=== PATIENT | male | born 1945 | race Caucasian/White ===

== ENCOUNTER → 2017-09-30 11:01 | Outpatient (CLI) | payer MEDICARE, SELFPAY ==
--- NOTE | 2017-09-30 | DI.US.S_ITS ---
PROCEDURE: US ABD AORTA ANEURYSM SCREEN INDICATIONS: SCREENING FOR ABDOMINAL AORTIC ANEURYSM TECHNIQUE: Real time scanning was performed of the aorta and iliac arteries, with image documentation. COMPARISON: None. FINDINGS: Aorta: Proximal aortic diameter measures 2.2 cm. Mid-aorta measures 1.7 cm. Distal aortic diameter is 1.6 cm. Iliac arteries: Right common iliac artery measures 1.1 cm. Left common iliac artery measures 1.3 cm. IMPRESSION: No abdominal aortic or proximal common iliac artery aneurysm. Dictated by: Brenton LANDRUM Interpreted: Chad Tijerina MD on 10/01/2017 at 8:41 Approved by: Josse Juarez M.D. on 10/04/2017 at 10:03
== END ==
PROVIDERS: Family Provider Family Medicine; PCP Family Medicine; Visit Provider Family Medicine
DX: Z13.6 Encounter for screening for cardiovascular disorders (principal)
CPT/HCPCS: 76706; 76770

== ENCOUNTER 2019-03-08 18:10 | Observation (INO) | payer MEDICARE, SELFPAY ==
[2019-03-08 18:17] VITALS: BP 183/91; PULSE 61; RESP 18; TEMP 36.7; O2SAT 96
--- NOTE | 2019-03-08 18:17 | DI.RAD.S_ITS ---
PROCEDURE: XR CHEST 1V INDICATIONS: chest pain TECHNIQUE: One view of the chest was acquired. COMPARISON: [facility], , CHEST 1 VIEW, 03/10/2017, 9:27. FINDINGS: Surgical changes and devices: None. Lungs and pleura: Lungs are clear. No pleural effusions or pneumothorax. Mediastinum: Mediastinal contours appear stable. No central venous congestion. Heart size is normal. Bones and chest wall: No suspicious bony lesions. Overlying soft tissues appear unremarkable. IMPRESSION: Stable exam without acute cardiopulmonary disease. Dictated by: Stephanie Pimentel M.D. on 03/08/2019 at 19:26 Approved by: Stephanie Pimentel M.D. on 03/08/2019 at 19:27
[2019-03-08 18:44] LABS: Add Manual Diff / Slide Review NO; Basophils Absolute Auto 100 /uL (0-100); Basophils Percent Auto 0.6 % (0-2); Eosinophils Absolute Auto 200 /uL (0-450); Eosinophils Percent Auto 2.7 % (2-4); Hematocrit 42.4 % (41-53); Hemoglobin 14.4 g/dL (13.5-17.5); Lymphocytes Absolute Auto 1800 /uL (1100-4500); Lymphocytes Percent Auto 20.5 % (25-40); Mean Corpuscular Hemoglobin 30.9 PG (26-34); Mean Corpuscular Volume 90.8 fL (80-100); Monocytes Absolute Auto 700 /uL (0-900); Monocytes Percent Auto 7.6 % (3-14); Neutrophils Absolute Auto 6100 /uL (1500-7000); Neutrophils Percent Auto 68.6 % (50-75); Platelet Count 161 X10^3/uL (150-400); Red Blood Cell Count 4.67 X10^6/uL (4.5-5.9); Red Cell Distribution Width 14.1 % (11.6-14.8); White Blood Cell Count 8.9 X10^3/uL (4.5-11.0)
--- NOTE | 2019-03-08 18:47 | PC.NURSE ---
pt reports, chest tightness intermittent, occurs at rest and on exertion, denies vomiting, denies diaphoretic, denies coughing. sxs for 6 months, supposed to have cardiology work up, but never recieved a call on arrival, pain free at this time. skin warm dry pink, denies bilateral lower legs edema.
[2019-03-08 18:58] LABS: PTT Partial Thromboplastin Tim 28 SECONDS (26.4-36.2)
[2019-03-08 18:59] LABS: Alanine Aminotransferase 25 IU/L (<50); Albumin 4.1 g/dL (3.5-5.0); Albumin Globulin Ratio 1.5 (1.0-2.8); Alkaline Phosphatase 79 U/L (38-126); Aspartate Aminotransferase 32 IU/L (17-59); BUN Creatinine Ratio 27.5 (6-22); Bilirubin Total 0.7 mg/dL (0.2-1.3); Blood Urea Nitrogen 22 mg/dL (9-20); Carbon Dioxide 25 mmol/L (22-32); Chloride 108 mmol/L (98-107); Creatine Kinase 212 U/L (55-170); Estimated Glomerular Filt Rate > 60.0 mL/min (>60); Globulin 2.8 g/dL (1.7-4.1); Glucose 114 mg/dL (80-110); HEMOLYSIS < 15 (0-50); Lipase 56 U/L (23-300); Potassium 3.9 mmol/L (3.4-5.1); Sodium 142 mmol/L (137-145); Total Protein 6.9 g/dL (6.3-8.2)
[2019-03-08 19:00] VITALS: BP 142/83; PULSE 55; RESP 18; O2SAT 93
[2019-03-08 19:08] LABS: D Dimer 342 ng/mL (<230)
--- NOTE | 2019-03-08 19:10 | ED.CHESTPAIN ---
HPI - Chest Pain General Chief Complaint: Chest Pain Stated Complaint: CHEST PAIN Time Seen by Provider: 03/08/19 18:39 Source: patient Mode of arrival: Ambulatory Limitations: no limitations History of Present Illness HPI narrative: Patient is a 73-year-old male. Has known coronary artery disease. States that approximately 4 years ago he had ?a heart attack ?. According to his description of the event appears to be a non ST elevation NE. He states that he did have a cardiac catheterization ever no stents replaced. He states that the brick loader told him ?it was too small ?for them to place a stent in any arteries. He has taken medicines since then. Has not had any issues for the past 4 years. 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 He states that for the past 6 weeks he has noticed some chest pain on exertion. Not worse with palpation or movement. Over the past few days he has noticed that this has become more prevalent and then today has noticed that he had left-sided and right-sided chest pressure with exertion. The time my exam patient was symptom free. No shortness of breath. Did take a baby aspirin prior to arrival. Related Data Home Medications Medication Instructions Recorded Confirmed atenolol 25 mg PO QPM #0 06/28/16 03/08/19 fluticasone propionate [Flonase 1 spray INTRANASAL QDAY #0 06/28/16 03/08/19 Allergy Relief] aspirin 81 mg tablet,delayed 81 mg PO DAILY 09/28/17 03/08/19 release atorvastatin 20 mg tablet 20 mg PO DAILY 09/28/17 03/08/19 meloxicam [Mobic] 15 mg PO PRN PRN 03/08/19 03/08/19 Allergies Allergy/AdvReac Type Severity Reaction Status Date / Time No Known Drug Allergies Allergy Unverified 09/28/17 17:32 Review of Systems Constitutional Constitutional: Denies fever(s) and Denies headache(s) Eyes Eyes: Denies blurry vision ENT Ears, Nose, Mouth, and Throat: Denies headache(s) Cardiovascular Cardiovascular: Reports chest pain, Denies rapid heart rate, Denies pedal edema, Denies edema, Denies dyspnea and Denies dyspnea on exertion Respiratory Respiratory: Denies cough, Denies dyspnea and Denies dyspnea on exertion Gastrointestinal Gastrointestinal: Denies abdominal pain, Denies nausea and Denies vomiting Genitourinary Genitourinary: Denies dysuria Musculoskeletal Musculoskeletal: Denies myalgias and Denies arthralgias Integumentary/Breasts Skin/Breast: Denies lesions and Denies rash Neurologic Neurologic: Denies behavioral changes and Denies headache(s) Psychiatric Psychiatric: Denies behavioral changes Hematologic/Lymphatic Hematologic/Lymphatic: Denies easy bleeding and Denies easy bruising Patient History Medical History Coronary artery disease (Acute) Hypertension (Acute) Social History household members: spouse Smoking Status: Never smoker alcohol intake frequency: 0-2 drinks per day Substance Use Type: does not use Exam Initial Vital Signs Initial Vital Signs: Vital Signs Temperature 98.0 F 03/08/19 18:17 Pulse Rate 61 03/08/19 18:17 Respiratory Rate 18 03/08/19 18:17 Blood Pressure 183/91 H 03/08/19 18:17 Pulse Oximetry 96 03/08/19 18:17 Const General: cooperative, comfortable and well developed Orientation: alert, awake and oriented x3 HENMT Head: normal to inspection and normocephalic Resp Effort & Inspection: normal respiratory effort Auscultation: clear to auscultation bilaterally Cardio Rate: regular rate Rhythm: regular rhythm Pulses: radial pulses present GI Inspection: non-distended Palpation: soft and No firm Skin Lesions: no lesions Rashes: no rashes Neuro General: alert, awake and oriented x3 Cognition: normal cognition Speech: speech normal Motor: muscle tone normal throughout Sensory Exam: no sensory deficits noted Extrem General: normal to inspection and capillary refill normal Psych Appearance: grossly normal and well kempt Scores HEART Score Heart Score history: Highly Suspicious Heart Score EKG: Normal Heart Score Age: > or = 65 years old Heart Score risk factors: > 3 risk factors or hx of atherosclerotic disease Heart Score troponin: < or = to normal limit Heart Score Total: 6 Course Orders Ordered: ED Orders 03/08/19 18:17 XR chest 1V Stat 03/08/19 18:40 Complete Blood Count AUTO DIFF Stat Comprehensive Metabolic Panel Stat DD [D Dimer] Stat Lipase Stat Partial Thromboplastin Time Stat Prothrombin Time INR Stat Troponin & CK Cardiac Panel Stat 03/08/19 20:35 Troponin I Stat Acetaminophen (Tylenol) 650 mg PO Q6HR PRN PRN Reason: As Needed for Fever/Mild Pain Sodium Chloride (Normal Saline 0.9%) 1,000 mls @ 125 mls/hr IV CONT CHAN Last Admin: 03/08/19 21:17 Dose: 125 mls/hr Documented by: RADHA Nitroglycerin (Nitrostat) 0.4 mg SL [id number] PRN PRN Reason: Chest Pain Ondansetron HCl (Zofran) 4 mg IV Q4HR PRN PRN Reason: Nausea And Vomiting Discontinued Medications Aspirin (Aspirin Chew) 324 mg PO NOW ONE Stop: 03/08/19 19:48 Last Admin: 03/08/19 19:59 Dose: 324 mg Documented by: LETA Vital Signs Vital signs: Vital Signs - 8 hr 03/08/19 18:17 03/08/19 19:00 03/08/19 19:30 Temperature 98.0 F Pulse Rate 61 55 L 57 L Respiratory Rate 18 18 27 H Blood Pressure 183/91 H Blood Pressure [Left Arm] 142/83 H 140/79 Pulse Oximetry 96 93 95 03/08/19 20:00 Temperature Pulse Rate 56 L Respiratory Rate 24 Blood Pressure Blood Pressure [Left Arm] 160/87 H Pulse Oximetry 96 MDM - Chest Pain Lab Data Attestation: I reviewed the patient's lab results. Result diagrams: 03/08/19 18:40 03/08/19 18:40 Labs: Lab Results 03/08/19 03/08/19 03/08/19 Range/Units 18:40 18:40 18:40 WBC 8.9 (4.5-11.0) X10^3/uL RBC 4.67 (4.5-5.9) X10^6/uL Hgb 14.4 (13.5-17.5) g/dL Hct 42.4 (41-53) % MCV 90.8 (80-100) fL MCH 30.9 (26-34) PG MCHC 34.0 (30-36) % RDW 14.1 (11.6-14.8) % Plt Count 161 (150-400) X10^3/uL Neut % (Auto) 68.6 (50-75) % Lymph % (Auto) 20.5 L (25-40) % [place] % (Auto) 7.6 (3-14) % Eos % (Auto) 2.7 (2-4) % Baso % (Auto) 0.6 (0-2) % Neut # (Auto) 6100 (9510-4196) /uL Lymph # (Auto) 1800 (0898-3230) /uL [place] # (Auto) 700 (0-900) /uL Eos # (Auto) 200 (0-450) /uL Baso # (Auto) 100 (0-100) /uL PT 12.0 (10.1-12.7) SECONDS INR 1.0 (0.9-1.3) APTT 28 (26.4-36.2) SECONDS D-Dimer (<230) ng/mL Sodium 142 (137-145) mmol/L Potassium 3.9 (3.4-5.1) mmol/L Chloride 108 H (98-107) mmol/L Carbon Dioxide 25 (22-32) mmol/L BUN 22 H (9-20) mg/dL Creatinine 0.80 (0.66-1.25) mg/dL Estimated GFR > 60.0 (>60) mL/min BUN/Creatinine Ratio 27.5 H (6-22) Glucose 114 H (80-110) mg/dL Calcium 9.0 (8.4-10.2) mg/dL Total Bilirubin 0.7 (0.2-1.3) mg/dL AST 32 (17-59) IU/L ALT 25 (<50) IU/L Alkaline Phosphatase 79 (38-126) U/L Total Creatine Kinase 212 H (55-170) U/L CK-MB (CK-2) 2.96 H (<2.37) ng/mL CK-MB (CK-2) Rel Index 1.4 L (1.5-5.0) % Troponin I 0.014 (0.01-0.034) ng/mL Total Protein 6.9 (6.3-8.2) g/dL Albumin 4.1 (3.5-5.0) g/dL Globulin 2.8 (1.7-4.1) g/dL Albumin/Globulin Ratio 1.5 (1.0-2.8) Lipase 56 (23-300) U/L 03/08/19 Range/Units 18:40 WBC (4.5-11.0) X10^3/uL RBC (4.5-5.9) X10^6/uL Hgb (13.5-17.5) g/dL Hct (41-53) % MCV (80-100) fL MCH (26-34) PG MCHC (30-36) % RDW (11.6-14.8) % Plt Count (150-400) X10^3/uL Neut % (Auto) (50-75) % Lymph % (Auto) (25-40) % [place] % (Auto) (3-14) % Eos % (Auto) (2-4) % Baso % (Auto) (0-2) % Neut # (Auto) (5022-7874) /uL Lymph # (Auto) (1811-9807) /uL [place] # (Auto) (0-900) /uL Eos # (Auto) (0-450) /uL Baso # (Auto) (0-100) /uL PT (10.1-12.7) SECONDS INR (0.9-1.3) APTT (26.4-36.2) SECONDS D-Dimer 342 H (<230) ng/mL Sodium (137-145) mmol/L Potassium (3.4-5.1) mmol/L Chloride (98-107) mmol/L Carbon Dioxide (22-32) mmol/L BUN (9-20) mg/dL Creatinine (0.66-1.25) mg/dL Estimated GFR (>60) mL/min BUN/Creatinine Ratio (6-22) Glucose (80-110) mg/dL Calcium (8.4-10.2) mg/dL Total Bilirubin (0.2-1.3) mg/dL AST (17-59) IU/L ALT (<50) IU/L Alkaline Phosphatase (38-126) U/L Total Creatine Kinase (55-170) U/L CK-MB (CK-2) (<2.37) ng/mL CK-MB (CK-2) Rel Index (1.5-5.0) % Troponin I (0.01-0.034) ng/mL Total Protein (6.3-8.2) g/dL Albumin (3.5-5.0) g/dL Globulin (1.7-4.1) g/dL Albumin/Globulin Ratio (1.0-2.8) Lipase (23-300) U/L Imaging Data Chest x-ray: Radiologist's impression: [place] [id number] [place] [id number] XRay Report Signed Patient: Brett Fragoso TMR#: [id number] : 5Acct:[id number] Age/Sex: 73 / MDate of Service: 03/08/19 Loc: ED Accession Number: [id number] Procedure: XR chest 1V Ordering Provider: Maynor Shah D.O. PROCEDURE: XR CHEST 1V INDICATIONS: chest pain TECHNIQUE: One view of the chest was acquired. COMPARISON: [facility], , CHEST 1 VIEW, 03/10/2017, 9:27. FINDINGS: Surgical changes and devices: None. Lungs and pleura: Lungs are clear. No pleural effusions or pneumothorax. Mediastinum: Mediastinal contours appear stable. No central venous congestion. Heart size is normal. Bones and chest wall: No suspicious bony lesions. Overlying soft tissues appear unremarkable. IMPRESSION: Stable exam without acute cardiopulmonary disease. Dictated by: Stephanie Pimentel M.D. on 03/08/2019 at 19:26 Approved by: Stephanie Pimentel M.D. on 03/08/2019 at 19:27 ECG Data Attestation: I personally reviewed and interpreted this ECG as follows: Prior ECG tracings: not available for review Interpretation: Sinus bradycardia Ventricular rate of 58 Normal axis Normal QRS Normal QTC No ST T wave changes MDM Narrative Medical decision making narrative: Patient asymptomatic upon arrival. EKG has no ST T wave changes. Chest x-ray is unremarkable. Initial troponin negative but detectable. His prior troponins albeit greater than 2 years ago have all been undetectable negative. His history is concerning for ACS given the fact that the symptoms come on when he exerts himself. This is also concerning also given his prior history of ACS. He was given a full-dose aspirin here in the ER. Patient was hypertensive. I did discuss the case with Dr. Montiel who is on-call for the patient's primary provider. She asked that I talk with Cardiology. The patient's brick loader is with the [facility] out of [place]. I did discuss the case with our on-call brick loader who agreed admitting the patient for serial troponins and stress testing is a reasonable approach. I was asked to admit the patient under Dr. Burch who is the patient's primary provider. Discussed the admission with the patient. He expressed understanding and agreement. Discharge Plan Departure Patient Disposition: Admitted as Observation Clinical Impression: Chest pain, rule out acute myocardial infarction Discharge Date/Time: 03/08/19 20:40 Admit Date/Time: 03/08/19 20:23 Admit Provider: Kaitlynn Burch
[2019-03-08 19:11] LABS: Troponin I 0.014 ng/mL (0.01-0.034)
[2019-03-08 19:14] LABS: CKMB % Relative Index 1.4 % (1.5-5.0); Creatine Kinase MB 2.96 ng/mL (<2.37)
[2019-03-08 19:30] VITALS: BP 140/79; PULSE 57; RESP 27; O2SAT 95
[2019-03-08] MEDS: ASPIRIN 81 MG CHEW TAB 324 MG PO (19:59)
[2019-03-08 20:00] VITALS: BP 160/87; PULSE 56; RESP 24; O2SAT 96
[2019-03-08 21:05] VITALS: BP 161/85; PULSE 53; RESP 19; TEMP 36.9; O2SAT 98; BMI 31.3
[2019-03-08 21:12] LABS: Troponin I 0.016 ng/mL (0.01-0.034)
[2019-03-08] MEDS: SODIUM CHLORIDE 0.9% 1,000 ML 125 ML IV (21:17)
--- NOTE | 2019-03-08 23:23 | PC.NURSE ---
A&O4. 98%RA. denied any sob. chest pain is on and off 05/12. IVF. no nausea. NPO. ambulates independently. call light in reach. oriented pt to room.
[2019-03-09] VITALS (8 sets, daily range): BP systolic 117–156; BP diastolic 62–86; PULSE 50–61; RESP 16–20; TEMP 36.6–37.5; O2SAT 94–97
[2019-03-09 01:05] LABS: Troponin I 0.017 ng/mL (0.01-0.034)
[2019-03-09] MEDS: SODIUM CHLORIDE 0.9% 1,000 ML 125 ML IV ×2 (05:52→14:53)
--- NOTE | 2019-03-09 06:00 | DI.ECHO.S_ITS ---
[facility] +---------+ [facility] +---------+ : : [address] : : : : [id number] : : : : Phone: [phone] Echocardiogram Report + + :Name: AMOL CRANE Study Date: 03/09/2019 Height: 68 in : :[facility] Weight: 212 lb : : Gender: Male BSA: 2.1 m2 : :: 1945 Age: 73 yrs BP: 156/86 mmHg: :Reason For Study: CP : : Performed By: Mohit Pickett : :Referring: JESSE LAND : + + Interpretation Summary The ejection fraction is estimated to be 60-65%. The left atrium is severely dilated. There is mild mitral regurgitation. There is mild aortic regurgitation. Procedure: A two-dimensional transthoracic echocardiogram with color flow and Doppler was performed. The study quality was technically adequate. Comparison is made with the echocardiogram of 06/08/14. The patient was in normal sinus rhythm during the exam. The patient was bradycardic with a heart rate of 49-58 beats per minute. Left Ventricle: The left ventricle is normal in size. There is normal left ventricular wall thickness. The ejection fraction is estimated to be 60-65%. There are no focal wall motion abnormalities. Right Ventricle: The right ventricle is normal in size and function. Atria: The left atrium is severely dilated. Right atrial size is normal. The interatrial septum is intact with no evidence for an atrial septal defect. Mitral Valve: There is mild mitral annular calcification. There is mild mitral regurgitation. Aortic Valve: The aortic valve is trileaflet. The aortic valve is slightly calcified. The aortic valve opens well. There is mild aortic regurgitation. Tricuspid Valve: The tricuspid valve is normal in structure and function. There is a trace or physiologic amount of tricuspid regurgitation. Pulmonary artery pressures cannot be estimated because of the lack of a measurable TR jet velocity. Pulmonic Valve: The pulmonic valve is normal in structure and function. There is no pulmonic valvular regurgitation. Great Vessels: The aortic root is normal size. The ascending aorta is mildly enlarged. The pulmonary artery is normal size. The IVC is of normal diameter and collapses greater than 50% with a sniff. This suggests a low right atrial pressure of 3 mm Hg. Pericardium/ Pleura There is no pericardial effusion. There is no pleural effusion. MMode/2D Measurements & Calculations LVIDd: 5.3 cm LVOT diam: 2.3 cm LVIDs: 3.4 cm Ao root diam: 4.0 cm FS: 35.4 % Aortic Jxn: 3.0 cm EPSS: 0.87 cm asc Aorta Diam: 3.7 cm IVSd: 1.2 cm Ao Arch Diam (Prox Trans): 2.7 cm LVPWd: 0.99 cm LV ackerman. diameter/BSA (cm/m^2): 2.5 LV sys. diameter/BSA (cm/m^2): 1.6 LA dimension: 3.6 cm RA long axis: 5.0 cm LA A2 area: 33.4 cm2 RA area: 17.4 cm2 LA A4 area: 30.6 cm2 RA vol: 51.5 ml LA length (vol): 7.3 cm RA : 24.6 ml/m2 LA vol: 118.7 ml IVC diam: 2.1 cm LA vol index: 56.6 ml/m2 RVD1 (basal): 3.4 cm RVD2 (mid): 3.7 cm Doppler Measurements & Calculations Ao V2 max: 96.1 cm/sec LVOT Max Shamar: 71.9 cm/sec Ao V2 mean: 69.6 cm/sec LV V1 max P.1 mmHg Ao max P.7 mmHg LV V1 VTI: 18.7 cm Ao mean P.1 mmHg DRAKE(I,D): 3.2 cm2 Ao V2 VTI: 24.7 cm DRAKE(V,D): 3.1 cm2 sev ratio: 0.76 DRAKE indexed to BSA (cm^2/m^2): 1.5 AI P1/2t: 1022 msec AI dec slope: 107.5 cm/sec2 MV E max shamar: 82.8 cm/sec SV(LVOT): 78.1 ml MV A max shamar: 49.5 cm/sec MV E/A: 1.7 Med Peak E' Shamar: 3.4 cm/sec E/E' med: 24.3 Lat Peak E' Shamar: 4.5 cm/sec E/E' lat: 18.2 E/e' average: 21.3 MV dec time: 0.20 sec Reading Physician:10:00 AM
--- NOTE | 2019-03-09 06:31 | PM.HP.1 ---
History of Present Illness History of Present Illness Date Patient Seen: 03/09/19 Time Patient Seen: 06:31 Chief complaint: CHEST PAIN Narrative: 73-year-old male with known coronary artery disease and history of [place] x1 four years ago, presented to the ED with chest pain on exertion x6 weeks. Chest pain has been worsening over the past 2 days and prior to presentation to the ED he had associated left-sided and right-sided chest pressure with exertion. At time of examination in the ED, patient was symptom free with no shortness of breath. He had taken a baby aspirin prior to arrival. Vital signs upon admission to the ED included a temperature of 98.0?, pulse 61, respirations 18, blood pressure 183/91, O2 saturation 96% on room air. Pertinent positives from the workup included an elevated CK-MB at 2.96, elevated CK at 2:12 a.m., and elevated D-dimer at 3:42 a.m.. Chest x-ray was notably negative. EKG showed sinus bradycardia with a ventricular rate of 58 beats per minute and no ST T wave changes. Troponin I was 0.014. Cardiology was consulted and recommended serial troponins and stress testing prior to discharge. Patient has had an uneventful night and denies any chest pain, pressure, or shortness of breath. He has been given nitro and a L of fluid but otherwise no medications. Reports that he is still having chest pain, feels like he has been sucker punched. No orthopnea, paroxysmal nocturnal dyspnea, lower extremity edema, palpitations, presyncope or syncope. Past medical history: Hyperlipidemia Hypertension NSTEMI status post POBA to the LAD her Inflammatory arthritis Obesity Obstructive sleep apnea on CPAP GERD Depression Past surgical history: Cholecystectomy Hernia repair CABG, 1991 Angioplasty, 2015 Arthroscopic right shoulder acromioplasty, 2001 Left shoulder arthroscopic a, multiple, 2018 Vertebral fusion, 2018 Family history: Father: Heart disease, bypass Mother: Heart disease, CVA, hypertension, hyperlipidemia Siblings: Heart disease Social history: , lives with spouse. Retired highway construction inspector. Patient History Medical History Coronary artery disease (Acute) Hypertension (Acute) Family & Social History Social History: household members spouse Prior Living Arrangements House Safety & Behavioral: Feels Safe in Current Yes Environment Been Physically Hurt or No Threatened By a Person Suicidal Ideation Description None Suicide Plan Description No Plan Tobacco & Substance use: Smoking Status Never smoker alcohol intake frequency 0-2 drinks per day Substance Use Type does not use Meds Home Medications and Allergies Home Medications Medication Instructions Recorded Confirmed Type atenolol 25 mg PO QPM #0 06/28/16 03/08/19 History fluticasone propionate [Flonase 1 spray INTRANASAL QDAY #0 06/28/16 03/08/19 History Allergy Relief] aspirin 81 mg tablet,delayed 81 mg PO DAILY 09/28/17 03/08/19 History release atorvastatin 20 mg tablet 20 mg PO DAILY 09/28/17 03/08/19 History meloxicam [Mobic] 15 mg PO PRN PRN 03/08/19 03/08/19 History Allergies Allergy/AdvReac Type Severity Reaction Status Date / Time No Known Drug Allergies Allergy Unverified 09/28/17 17:32 Review of Systems Review of Systems ROS Unobtainable: All systems reviewed & are unremarkable except as noted in HPI and below Exam Vital Signs (past 8 hours): - 03/09/19 00:30 03/09/19 04:34 Temperature 98.0 F 97.8 F Pulse Rate 50 L 53 L Respiratory Rate 16 16 Blood Pressure 117/62 140/80 Pulse Oximetry 94 95 Oxygen Delivery Method Room Air Oxygen Flow Rate 0 Narrative Exam Narrative: GENERAL: Alert and oriented, appearing stated age and in no acute distress. HEENT: Head normocephalic/atraumatic. LUNGS: Clear to ausculation bilaterally, no wheezes, rhonchi or rales. CV: Normal S1 and S2 with regular rate and rhythm, no audible murmurs, rubs or gallops. ABDOMEN: Soft, non-tender, non-distended, no organomegaly. Positive bowel sounds. EXTREMITIES: No clubbing, cyanosis, or edema. NEURO: Cranial nerves II through XII grossly intact, no focal deficits. PSYCH: Alert and oriented x 3. SKIN: No concerning lesions. Objective Labs Result Diagrams: 03/09/19 06:55 03/09/19 06:55 Labs: Laboratory Results - last 24 hr 03/08/19 03/08/19 03/08/19 18:40 18:40 18:40 WBC 8.9 RBC 4.67 Hgb 14.4 Hct 42.4 MCV 90.8 MCH 30.9 MCHC 34.0 RDW 14.1 Plt Count 161 Neut % (Auto) 68.6 Lymph % (Auto) 20.5 L [place] % (Auto) 7.6 Eos % (Auto) 2.7 Baso % (Auto) 0.6 Neut # (Auto) 6100 Lymph # (Auto) 1800 [place] # (Auto) 700 Eos # (Auto) 200 Baso # (Auto) 100 PT 12.0 INR 1.0 APTT 28 D-Dimer Sodium 142 Potassium 3.9 Chloride 108 H Carbon Dioxide 25 BUN 22 H Creatinine 0.80 Estimated GFR > 60.0 BUN/Creatinine Ratio 27.5 H Glucose 114 H Calcium 9.0 Total Bilirubin 0.7 AST 32 ALT 25 Alkaline Phosphatase 79 Total Creatine Kinase 212 H CK-MB (CK-2) 2.96 H CK-MB (CK-2) Rel Index 1.4 L Troponin I 0.014 Total Protein 6.9 Albumin 4.1 Globulin 2.8 Albumin/Globulin Ratio 1.5 Lipase 56 03/08/19 03/08/19 03/09/19 18:40 20:35 00:30 WBC RBC Hgb Hct MCV MCH MCHC RDW Plt Count Neut % (Auto) Lymph % (Auto) [place] % (Auto) Eos % (Auto) Baso % (Auto) Neut # (Auto) Lymph # (Auto) [place] # (Auto) Eos # (Auto) Baso # (Auto) PT INR APTT D-Dimer 342 H Sodium Potassium Chloride Carbon Dioxide BUN Creatinine Estimated GFR BUN/Creatinine Ratio Glucose Calcium Total Bilirubin AST ALT Alkaline Phosphatase Total Creatine Kinase CK-MB (CK-2) CK-MB (CK-2) Rel Index Troponin I 0.016 0.017 Total Protein Albumin Globulin Albumin/Globulin Ratio Lipase Assessment & Plan Assessment & Plan narrative: Assessment 1: Dyspnea on exertion, Will rule out [place] with serial troponins and perform stress testing today. Will arrange for outpatient cardiology follow up with [facility] where patient would like to transfer care as his is seen there. Has been seeing Dr. San at [facility] at [facility] in [facility]; last visit was on 11/15/2018. Patient also has an elevated D-dimer and his dyspnea may be secondary to a PE. He is not complaining of lower extremity pain or swelling and so will hold off on duplex ultrasound. Assessment 2: Hyperlipidemia, chronic. Lipid panel on 10/19/2018 revealed a total cholesterol of 172, HDL 42, LDL 110, triglycerides 100. ASCVD risk score 30.8%, maximally tolerated statin recommended. Will change atorvastatin from 20 mg to 40 p.o. q.day. Assessment 3: Hypertension, blood pressure improved since presentation. Continue atenolol 25 mg p.o. q.day and watch trend. Assessment 4: Inflammatory arthritis, continue meloxicam 50 mg p.o. q.day as needed. Assessment 5: Obstructive sleep apnea, continue CPAP. Assessment 6: GERD, chronic, currently asymptomatic. Assessment 7: Depression, recently discontinued from sertraline secondary to chronic diarrhea and general malaise. No treatment at this time. Code status: Full DVT prophylaxis: Lovenox Disposition: Anticipate discharge to home in 24 hours.
[2019-03-09 07:21] LABS: Add Manual Diff / Slide Review NO; Basophils Absolute Auto 0 /uL (0-100); Basophils Percent Auto 0.4 % (0-2); Eosinophils Absolute Auto 200 /uL (0-450); Eosinophils Percent Auto 3.3 % (2-4); Hematocrit 40.1 % (41-53); Hemoglobin 13.7 g/dL (13.5-17.5); Lymphocytes Absolute Auto 1500 /uL (1100-4500); Lymphocytes Percent Auto 21.3 % (25-40); Mean Corpuscular HGB Conc 34.3 % (30-36); Mean Corpuscular Hemoglobin 31.1 PG (26-34); Mean Corpuscular Volume 90.7 fL (80-100); Monocytes Absolute Auto 500 /uL (0-900); Monocytes Percent Auto 7.5 % (3-14); Neutrophils Absolute Auto 4700 /uL (1500-7000); Neutrophils Percent Auto 67.5 % (50-75); Platelet Count 140 X10^3/uL (150-400); Red Blood Cell Count 4.41 X10^6/uL (4.5-5.9); Red Cell Distribution Width 14.4 % (11.6-14.8); White Blood Cell Count 6.9 X10^3/uL (4.5-11.0)
[2019-03-09 07:26] LABS: BUN Creatinine Ratio 27.1 (6-22); Blood Urea Nitrogen 19 mg/dL (9-20); Calcium 8.3 mg/dL (8.4-10.2); Carbon Dioxide 25 mmol/L (22-32); Chloride 111 mmol/L (98-107); Estimated Glomerular Filt Rate > 60.0 mL/min (>60); Glucose 108 mg/dL (80-110); HEMOLYSIS 25 (0-50); Potassium 4.1 mmol/L (3.4-5.1); Sodium 140 mmol/L (137-145)
[2019-03-09 07:38] LABS: Troponin I 0.012 ng/mL (0.01-0.034)
--- NOTE | 2019-03-09 08:10 | DI.CT.S_ITS ---
PROCEDURE: CT ANGIO CHEST INDICATIONS: dyspnea on exetionn, elevated D-dimer TECHNIQUE: After the administration of intravenous contrast, 2 mm thick sections acquired from the pulmonary apices to the posterior costophrenic angles. 3-dimensional maximum intensity projection (MIP) coronal and sagittal reformats were then acquired through the thorax. For radiation dose reduction, the following was used: automated exposure control, adjustment of mA and/or kV according to patient size. COMPARISON: None. FINDINGS: Image quality: Excellent. Pulmonary arteries: Pulmonary arteries are normal in size, and demonstrate no intraluminal filling defects to suggest central pulmonary embolism. Lungs and pleura: Small bilateral pleural effusion is seen with bilateral lower lobe dependent atelectasis posteriorly. Patchy hazy groundglass opacities are noted in posterior aspect bilateral upper and lower lobes suggestive of mild pulmonary edema. Central and peripheral airways are patent. Mediastinum: Heart size is mildly enlarged, without pericardial effusion. Prominent right paratracheal lymph node measures 1.5 cm in short axis diameter is seen. 1.2 cm subcarinal lymph node is also noted. There is a 1.4 cm right hilar lymph node. No significant left hilar lymphadenopathy. Mild atherosclerotic calcifications are noted in coronary vessels and thoracic aorta Thoracic aorta is normal in caliber and enhancement. Esophagus is normal in caliber, with a small hiatal hernia. Bones and chest wall: No suspicious bony lesions. Ribs and thoracic spine appear intact throughout. Thyroid gland is unremarkable. No axillary or supraclavicular adenopathy. Abdomen: Visualized upper abdominal solid organs appear normal in the early arterial phase of enhancement. Gallbladder is surgically absent. Possible bilateral renal cysts are seen. IMPRESSION: 1. No evidence of pulmonary emboli. No thoracic aortic aneurysm or dissection. 2. Mild cardiomegaly and nonspecific enlarged mediastinal and right hilar lymph nodes as above. 3. Small right greater than left bilateral pleural effusion and bilateral lower lobe dependent atelectasis. Suggestion of mild pulmonary edema with patchy hazy groundglass opacities seen in posterior aspect of bilateral lung welch. No pneumothorax. Airway is patent. 4. Prior cholecystectomy. Dictated by: Shaun Park M.D. on 03/09/2019 at 9:01 Approved by: Shaun Park M.D. on 03/09/2019 at 9:16
[2019-03-09] MEDS: ENOXAPARIN 40 MG/0.4 ML SYRINGE SUBCUT (09:45)
[2019-03-09 11:40] LABS: Troponin I < 0.012 ng/mL (0.01-0.034)
[2019-03-09 15:23] LABS: Troponin I < 0.012 ng/mL (0.01-0.034)
--- NOTE | 2019-03-09 15:47 | PM.TREADMILL ---
Cardiac Stress Test Report Referral & Results Date Patient Seen: 03/09/19 Time Patient Seen: 15:30 Requesting provider: Kaitlynn Burch Indication: Dyspnea Rest ECG: NSR Procedure Note: Today following both written and verbal informed consent the patient was exercised according to a standard Mukul protocol patient went for a total of 7 minutes 36 seconds achieving a maximum heart rate of 129 maximum systolic blood pressure of 180. This is approximately 10.1 METs. Exercise was terminated at this point because of fatigue. Patient was also given Cardiolite through a previously started Hep-Lock IV by the nuclear equipment test engineer approximately 1 minute prior to the cessation of exercise. No signs or symptoms of angina during exercise. Patient complained of chest pressure on deep inspiration during recovery. [address] deviations in multiple leads that resolved rapidly with rest, with the exception of the precordial leads, which resolved substantially slower. First tracer injection delayed by obstructed IV, please disregard the 1st tracer time step. MEREDITH 0% on sedentary scale. Impression: Intermediate probability for ischemia. Will await perfusion imaging. Please note: Actual ECG tracings can be found in the PACS system.
[2019-03-09] MEDS: ATORVASTATIN 20 MG TABLET 40 MG PO (20:57)
[2019-03-09] MEDS: ASPIRIN EC 81 MG TABLET PO (20:57)
[2019-03-09] MEDS: ATENOLOL 25 MG TABLET PO (20:57)
[2019-03-09] MEDS: MELOXICAM 7.5 MG TABLET 15 MG PO (20:58)
[2019-03-10 00:15] VITALS: BP 141/70; PULSE 61; RESP 16; TEMP 37.1; O2SAT 94
[2019-03-10 01:00] VITALS: O2SAT 94
[2019-03-10] MEDS: SODIUM CHLORIDE 0.9% 1,000 ML 125 ML IV (03:20)
[2019-03-10 04:38] VITALS: BP 138/72; PULSE 61; RESP 18; TEMP 36.7; O2SAT 95
--- NOTE | 2019-03-10 05:10 | PC.NURSE ---
Pt. NPO now, denies any chest pain & other discomfort. Will cont. POC & monitor.
--- NOTE | 2019-03-10 06:44 | PM.PN.1 ---
Subjective Subjective Date Patient Seen: 03/10/19 Time Patient Seen: 06:44 Interval history: Patient is feeling about the same this morning, denies overnight chest pain. Slept well overnight. No nausea or vomiting, tolerating diet well. No shortness of breath. Nursing reports an uneventful night. Exam Vital Signs (past 8 hours): - 03/10/19 00:15 03/10/19 01:00 03/10/19 04:38 Temperature 98.7 F 98.0 F Pulse Rate 61 61 Respiratory Rate 16 18 Blood Pressure 141/70 H 138/72 Pulse Oximetry 94 94 95 Oxygen Delivery Method Room Air Oxygen Flow Rate 0 Narrative Exam Narrative: GENERAL: Alert and oriented, appearing stated age and in no acute distress. HEENT: Head normocephalic/atraumatic. LUNGS: Clear to ausculation bilaterally, no wheezes, rhonchi or rales. CV: Normal S1 and S2 with regular rate and rhythm, no audible murmurs, rubs or gallops. ABDOMEN: Soft, non-tender, non-distended, no organomegaly. Positive bowel sounds. EXTREMITIES: No clubbing, cyanosis, or edema. NEURO: Cranial nerves II through XII grossly intact, no focal deficits. PSYCH: Alert and oriented x 3. SKIN: No concerning lesions. Objective Labs Result Diagrams: 03/09/19 06:55 03/09/19 06:55 Labs: Laboratory Results - last 24 hr 03/09/19 03/09/19 03/09/19 06:55 06:55 06:55 WBC 6.9 RBC 4.41 L Hgb 13.7 Hct 40.1 L MCV 90.7 MCH 31.1 MCHC 34.3 RDW 14.4 Plt Count 140 L Neut % (Auto) 67.5 Lymph % (Auto) 21.3 L [place] % (Auto) 7.5 Eos % (Auto) 3.3 Baso % (Auto) 0.4 Neut # (Auto) 4700 Lymph # (Auto) 1500 [place] # (Auto) 500 Eos # (Auto) 200 Baso # (Auto) 0 Sodium 140 Potassium 4.1 Chloride 111 H Carbon Dioxide 25 BUN 19 Creatinine 0.70 Estimated GFR > 60.0 BUN/Creatinine Ratio 27.1 H Glucose 108 Calcium 8.3 L Troponin I 0.012 03/09/19 03/09/19 11:05 14:45 WBC RBC Hgb Hct MCV MCH MCHC RDW Plt Count Neut % (Auto) Lymph % (Auto) [place] % (Auto) Eos % (Auto) Baso % (Auto) Neut # (Auto) Lymph # (Auto) [place] # (Auto) Eos # (Auto) Baso # (Auto) Sodium Potassium Chloride Carbon Dioxide BUN Creatinine Estimated GFR BUN/Creatinine Ratio Glucose Calcium Troponin I < 0.012 < 0.012 Assessment & Plan Assessment & Plan narrative: Assessment 1: Dyspnea on exertion, serial troponins have been negative x3 with downward trend. However, stress testing yesterday abnormal and patient is due for his follow-up study today. Possible need for transfer to [facility] for catheterization later today after results return. Coordinating care with Dr. Pruett, cardiology, will await his phone call. CT angiogram was negative for PE. Patient denies any subjective leg pain or swelling and there are no objective findings consistent with a lower extremity DVT. Holding off on duplex ultrasound at this time. Suspect the elevated D-dimer is secondary to his chest pain and possibly underlying OH; will continue to evaluate that with stress testing today. Assessment 2: Hyperlipidemia, chronic. Lipid panel on 10/19/2018 revealed a total cholesterol of 172, HDL 42, LDL 110, triglycerides 100. ASCVD risk score 30.8%, maximally tolerated statin recommended. Have changed atorvastatin from 20 mg to 40 p.o. q.day, continue. Assessment 3: Hypertension, blood pressure improved since presentation. Continue atenolol 25 mg p.o. q.day and watch trend. Assessment 4: Inflammatory arthritis, continue meloxicam 50 mg p.o. q.day as needed. Assessment 5: Obstructive sleep apnea, continue CPAP. Assessment 6: GERD, chronic, currently asymptomatic, no treatment needed. Assessment 7: Depression, recently discontinued from sertraline secondary to chronic diarrhea and general malaise. No treatment at this time. Code status: Full DVT prophylaxis: Lovenox Disposition: Possible transfer to [facility] today versus discharge to home.
[2019-03-10 07:30] VITALS: BP 120/72; PULSE 52; RESP 18; TEMP 37.1; O2SAT 95
[2019-03-10 07:45] VITALS: O2SAT 95
--- NOTE | 2019-03-10 11:20 | PM.DS.1 ---
History of Present Illness History of Present Illness Date Patient Seen: 03/10/19 Time Patient Seen: 11:20 Chief complaint: CHEST PAIN Narrative: 73-year-old male with known coronary artery disease and history of ND x1 four years ago, presented to the ED with chest pain on exertion x6 weeks. Chest pain has been worsening over the past 2 days and prior to presentation to the ED he had associated left-sided and right-sided chest pressure with exertion. At time of examination in the ED, patient was symptom free with no shortness of breath. He had taken a baby aspirin prior to arrival. Vital signs upon admission to the ED included a temperature of 98.0?, pulse 61, respirations 18, blood pressure 183/91, O2 saturation 96% on room air. Pertinent positives from the workup included an elevated CK-MB at 2.96, elevated CK at 2:12 a.m., and elevated D-dimer at 3:42 a.m.. Chest x-ray was notably negative. EKG showed sinus bradycardia with a ventricular rate of 58 beats per minute and no ST T wave changes. Troponin I was 0.014. Cardiology was consulted and recommended serial troponins and stress testing prior to discharge. Patient has had an uneventful night and denies any chest pain, pressure, or shortness of breath. He has been given nitro and a L of fluid but otherwise no medications. Past medical history: Hyperlipidemia Hypertension NSTEMI status post POBA to the LAD Inflammatory arthritis Obesity Obstructive sleep apnea on CPAP GERD Depression Past surgical history: Cholecystectomy Hernia repair CABG, 1991 Angioplasty, 2014 Arthroscopic right shoulder acromioplasty, 2001 Left shoulder arthroscopic a, multiple, 2018 Vertebral fusion, 2018 Family history: Father: Heart disease, bypass Mother: Heart disease, CVA, hypertension, hyperlipidemia Siblings: Heart disease Social history: , lives with spouse. Retired construction consultant. Discharge Providers Provider Date of admission: 03/08/19 20:23 Discharge Date: 03/10/19 Primary care physician: Kaitlynn Burch MD Consults: 03/08/19 20:38 Consult to Physician Routine Comment: Consulting Provider: Gladis Montiel Reason for consultation: admission Has provider been notified: Yes 03/08/19 20:40 Consult to Physician Routine Comment: Consulting Provider: Kaitlynn Burch Reason for consultation: admission Has provider been notified: No 03/09/19 07:00 Consult to Discharge Planning Routine Comment: Discharge provider: Kaitlynn Burch MD Summary Hospital Course Discharge Diagnosis: 1. Acute coronary syndrome, rule out ND Hospital Course: Hospital course significant for abnormal stress testing with potential reversible ischemia noted, catheterization recommended by Dr. Pruett, cardiology. Serial troponins were 0.016, 0.012, and 0.012. CK-MB 2.96, CK total 212. EKG showed sinus bradycardia with a ventricular rate of 58 beats per minute and no ST T wave changes. Telemetry unremarkable. Vital signs have been stable throughout. CT angiogram negative for PE; patient did have dependent bilateral lower lobe atelectasis and mild right greater than left pleural effusions. Mild cardiomegaly also seen. Echo did show an ejection fraction of 60-65%, slight dilatation of left atrium, mild mitral regurgitation and mild atrial regurgitation. Chest x-ray was unremarkable. Oxygen saturation has been in the mid 90s on room air. He had mild chest pain, 2/10 at presentation and denies any current pain. Received nitroglycerin x1 in the ED. Dr. Hsu, hospitalist at [facility], was consulted and has kindly agreed to accept patient in transfer care secondary to need for catheterization. Dr. Pruett has arranged cardiology consult with Dr. Lowery. Exam Vital Signs (past 8 hours): - 03/10/19 04:38 03/10/19 07:30 03/10/19 07:45 Temperature 98.0 F 98.8 F Pulse Rate 61 52 L Respiratory Rate 18 18 Blood Pressure 138/72 120/72 Pulse Oximetry 95 95 95 Oxygen Delivery Method Room Air Oxygen Flow Rate 0 Narrative Exam Narrative: GENERAL: Alert and oriented, appearing stated age and in no acute distress. HEENT: Head normocephalic/atraumatic. LUNGS: Clear to ausculation bilaterally, no wheezes, rhonchi or rales. CV: Normal S1 and S2 with regular rate and rhythm, no audible murmurs, rubs or gallops. ABDOMEN: Soft, non-tender, non-distended, no organomegaly. Positive bowel sounds. EXTREMITIES: No clubbing, cyanosis, or edema. NEURO: Cranial nerves II through XII grossly intact, no focal deficits. PSYCH: Alert and oriented x 3. SKIN: No concerning lesions. Objective Labs Result Diagrams: 03/09/19 06:55 03/09/19 06:55 Labs: Laboratory Results - last 24 hr 03/09/19 03/09/19 11:05 14:45 Troponin I < 0.012 < 0.012 Discharge Plan Discharge Plan Patient Disposition: [facility] Transfer to: [facility] Under care of provider: Dr. Hsu Discharge comment: Transfer via [facility] ambulance for cath. Discharge Med Rec/Prescriptions Prescriptions: New atorvastatin [Lipitor] 20 mg Tablet 40 mg PO DAILY Qty: 90 RF: 3 nitroglycerin [Nitrostat] 0.4 mg Tablet, Sublingual 0.4 mg sublingual [id number] PRN (Reason: Chest Pain) Qty: 15 RF: 6 Continued aspirin [Adult Low Dose Aspirin] 81 mg tablet,delayed release (DR/EC) 81 mg PO DAILY RF: 0 atenolol 25 MG tablet 25 mg PO QPM Qty: 0 RF: 0 fluticasone propionate [Flonase Allergy Relief] 9.9 ML spray,suspension 1 spray Intranasal QDAY Qty: 0 RF: 0 meloxicam [Mobic] 15 mg tablet 15 mg PO PRN PRN (Reason: Pain) RF: 0 Discontinued atorvastatin 20 mg tablet 20 mg PO DAILY RF: 0 Discharge Health Status Precautions: [place] Provider Discharge Instructions Diet: Nothing by Mouth Discharge Data Attending Provider: Kaitlynn uBrch Admit Date/Time: 03/08/19 20:23
[2019-03-10 11:34] VITALS: BP 133/74; PULSE 48; RESP 18; TEMP 36.9; O2SAT 95
--- NOTE | 2019-03-10 12:44 | PC.NURSE ---
Pt transferred to [facility] via ambulance, tele in place, IV saline lock intact. Report called to Claritza at [facility] and all questions answered.
--- NOTE | 2019-03-11 08:39 | DI.NM.S_ITS ---
DATE OF SERVICE: 03/09/2019 PROCEDURE PERFORMED: Exercise stress and rest myocardial perfusion imaging with gating to assess ejection fraction and regional wall motion. ORDERING PROVIDER: Dr. Kaitlynn Burch INDICATIONS: The patient is a 73-year-old male with a history of previous LAD angioplasty who now presents with escalating exertional chest discomfort. EXERCISE TREADMILL TESTING: The patient was able to exercise for a total of 7 minutes, 36 seconds on a standard Mukul protocol, suggesting good exercise capacity with an MEREDITH of -15%. He had a normal heart rate and blood pressure response to exercise, achieving a maximum heart rate of 129 bpm (88% of his predicted maximum). He had no chest discomfort with exercise but developed deep chest pressure early in recovery. His resting ECG is relatively normal without any significant ST segment deviation. With exercise, he develops 2 to [address] depression that becomes down-sloping with T-wave inversions in the lateral leads, consistent with an ischemic response. There were no arrhythmias. At 6 minutes 33 seconds of exercise, at a heart rate of 121 bpm, 21.8 mCi technetium-99 Myoview was injected and the patient was imaged 15 minutes later using a gated SPECT acquisition protocol. He returned the following day and was re-injected with an additional 25.2 mCi of technetium-99 Myoview and was imaged 30 minutes later, again used a gated SPECT acquisition protocol. FINDINGS: 1. Raw data: There is fairly good myocardial tracer uptake. Lung/heart ratio is normal at 0.35, and TID ratio is normal at 1.08. 2. Quantitative gated SPECT: Post-stress ejection fraction is estimated at 65% with probable hypokinesis in the proximal and mid posterolateral wall extending into the distal posterolateral wall with a very subtle wall motion abnormality. There are no other wall motion abnormalities. Resting ejection fraction is 73% with a resolution of this wall motion abnormality. Resting end- diastolic volume is normal at 136 mL. 3. Myocardial perfusion imaging: Post-stress supine images show a moderate-sized perfusion defect in the proximal inferior and inferolateral segment extending into the mid inferolateral segment. This defect persists on the prone images, consistent with a true perfusion defect. This defect essentially completely resolves on the resting images, consistent with myocardial ischemia. CONCLUSION: 1. Abnormal myocardial perfusion study. 2. Moderate-sized completely-reversible perfusion defect in the proximal and mid inferolateral and proximal inferior wall, consistent with probable left circumflex coronary artery disease. 3. Provocable wall motion abnormality in the distribution described above, but normal LV systolic function at rest. 4. Good exercise capacity with somewhat atypical chest discomfort but an ischemic ECG response to exercise. 5. Compared to the previous myocardial perfusion study of 07/16/2016, this inferolateral defect appears to be new, as is the provocable wall motion abnormality. His previous ejection fraction was 70% without any wall motion abnormalities. Brett Fragoso - RS/fn/ts doc#: [id number]/job#: [id number] dd: 03/10/2019 09:40:00 dt: 03/11/2019 07:57:00 DICTATING MD/COPIES TO: Ari Pruett MD; Kaitlynn Burch MD; Cooper Whittaker MD COPIES MNE: DAVID WOLF
== END 2019-03-10 12:49 | disposition short-term general hospital (02) ==
LOC: ED 18:39 → AC 20:25
PROVIDERS: Admitting Provider Student in an Organized Health Care Education/Training Program; Emergency Provider Emergency Medicine; Family Provider Family Medicine; Visit Provider Student in an Organized Health Care Education/Training Program
DX: I24.9 Acute ischemic heart disease, unspecified (principal); R07.9 Chest pain, unspecified; I25.10 Atherosclerotic heart disease of native coronary artery without angina pectoris; I25.2 Old myocardial infarction
CPT/HCPCS: 36415; 71045; 71275; 78452; 80048; 80053; 82550; 82553; 83690; 84484; 85025; 85379; 85610; 85730; 93005; 93010; 93016; 93017; 93018; 93306; 96360; 96361; 99283; 99285; G0378; A9502; J1650; Q9967

== ENCOUNTER → 2019-04-05 15:49 | Outpatient (CLI) | payer MEDICARE, SELFPAY ==
[2019-03-08 21:05] VITALS: BMI 31.3
--- NOTE | 2019-04-05 | DI.RAD.S_ITS ---
PROCEDURE: XR KUB INDICATIONS: calculus of kidney TECHNIQUE: One view of the abdomen acquired. COMPARISON: None. FINDINGS: Surgical changes and devices: There is a right double-J ureteral stent projected over the expected course of the right ureter. Surgical clips are projected over the gallbladder fossa. Posterior fixation hardware and discectomy hardware is present at L5-S1. Bowel: Bowel gas pattern is normal. Soft tissues: No suspicious abdominal calcifications. Visualized solid organ contours appear normal in size. Bones: No suspicious bony lesions. IMPRESSION: No definite soft tissue calcifications to suggest persistent renal or ureteral calculus. If further characterization is warranted, CT KUB could be used. Dictated by: Marni Leavitt M.D. on 04/05/2019 at 16:20 Approved by: Marni Leavitt M.D. on 04/05/2019 at 16:21
== END ==
PROVIDERS: Family Provider Student in an Organized Health Care Education/Training Program; Visit Provider Specialist
DX: N20.0 Calculus of kidney (principal)
CPT/HCPCS: 74018

== ENCOUNTER 2019-04-28 18:07 | Emergency (ER) | payer MEDICARE, SELFPAY ==
[2019-04-28] VITALS (9 sets, daily range): BP systolic 99–127; BP diastolic 59–75; PULSE 56–70; RESP 18–23; TEMP 36.7; O2SAT 93–97
--- NOTE | 2019-04-28 18:21 | DI.RAD.S_ITS ---
PROCEDURE: XR CHEST 1V INDICATIONS: chest pain TECHNIQUE: One view of the chest was acquired. COMPARISON: [facility], CT, CT ANGIO CHEST, 03/09/2019, 8:02. [facility], CR, CHEST 1 VIEW, 03/10/2017, 9:27. [facility], CR, XR CHEST 1V, 03/08/2019, 18:52. FINDINGS: Surgical changes and devices: None. Lungs and pleura: Lungs are clear. No pleural effusions or pneumothorax. Mediastinum: Mediastinal contours appear normal. Heart size is normal. Bones and chest wall: No suspicious bony lesions. Overlying soft tissues appear unremarkable. IMPRESSION: No acute cardiopulmonary disease. Dictated by: Klaudia Mayen M.D. on 04/28/2019 at 19:36 Approved by: Klaudia Mayen M.D. on 04/28/2019 at 19:38
--- NOTE | 2019-04-28 18:25 | ED_ITS ---
HPI - Chest Pain General Chief Complaint: Chest Pain Stated Complaint: CHEST PAIN Time Seen by Provider: 04/28/19 18:19 Source: patient and family Mode of arrival: Ambulatory Limitations: no limitations History of Present Illness HPI narrative: 73-year-old male nonsmoker with history of hypertension, hyperlipidemia and coronary artery disease presents with episodes of gradually worsening chest pain over the past few weeks. He was last seen at [facility] and had heart catheterization and stent in the beginning of March and has had ongoing symptoms ever since. His fur blender recently made mention that the plan was to continue to alter medications in attempt to control symptoms but if that did not work that he would need another heart catheterization as there were some occlusions that could receive a stent if needed. Today's pressure was retrosternal and started while exerting himself, m aximal pressure at 7/10 and on arrival it was down to a 4. At times the pain radiates across left side of his chest. He denies associated symptoms such as dizziness, weakness or lightheadedness. He denies nausea, vomiting or diaphoresis. He denies recent travel or injury MD complaint: chest pain Onset (ago): day(s) Duration: intermittent Onset: during rest and during exertion Pain location: substernal and left chest Severity: moderate Severity scale (1-10): 4 Quality: aching and heaviness Pain radiation: LUE Relieving factors: nothing Exacerbating factors: nothing Treatments prior to arrival chest pain: aspirin Related Data Home Medications Medication Instructions Recorded Confirmed aspirin 81 mg tablet,delayed 81 mg PO BEDTIME 09/28/17 04/28/19 release clopidogrel 75 mg PO BEDTIME 04/28/19 04/28/19 isosorbide mononitrate 30 mg PO BID 04/28/19 04/28/19 losartan 50 mg PO BEDTIME 04/28/19 04/28/19 metoprolol tartrate 50 mg PO BID 04/28/19 04/28/19 lu-ci-GI-vit [id number] 1 cap PO BEDTIME 04/28/19 04/28/19 [Daily Multivitamin] rosuvastatin 40 mg PO BEDTIME 04/28/19 04/28/19 Previous Rx's Medication Instructions Recorded nitroglycerin [Nitrostat] 0.4 mg SUBLINGUAL [id number] PRN #15 03/10/19 tab Allergies Allergy/AdvReac Type Severity Reaction Status Date / Time No Known Drug Allergies Allergy Unverified 09/28/17 17:32 Review of Systems Constitutional Constitutional: Denies chills, Denies fatigue, Denies fever(s), Denies frequent falls, Denies lethargy and Denies weakness Eyes Eyes: Denies change in vision, Denies eye discharge, Denies irritation and Denies loss of vision ENT Ears, Nose, Mouth, and Throat: Denies change in voice, Denies dizziness, Denies neck pain, Denies sore throat and Denies throat swelling Cardiovascular Cardiovascular: Reports chest pain, Denies irregular heart rhythm, Denies lightheadedness, Denies palpitations, Denies dyspnea, Denies dyspnea on exertion and Denies orthopnea Respiratory Respiratory: Denies cough, Denies dyspnea, Denies dyspnea on exertion and Denies wheezing Gastrointestinal Gastrointestinal: Denies abdominal pain, Denies change in bowel habits, Denies diarrhea, Denies nausea and Denies vomiting Genitourinary Genitourinary: Denies hematuria, Denies flank pain, Denies urinary incontinence and Denies urinary urgency Musculoskeletal Musculoskeletal: Denies back pain, Denies muscle weakness, Denies neck pain, Denies numbness and Denies tingling Integumentary/Breasts Skin/Breast: Denies pruritus, Denies erythema, Denies rash and Denies wounds Neurologic Neurologic: Denies behavioral changes, Denies confusion, Denies dizziness, Denies frequent falls, Denies loss of vision, Denies numbness, Denies tingling and Denies weakness Psychiatric Psychiatric: Denies anxiety, Denies behavioral changes, Denies confusion, Denies depression, Denies homicidal ideation and Denies suicidal ideation Endocrine Endocrine: Denies fatigue, Denies flushing and Denies palpitations Hematologic/Lymphatic Hematologic/Lymphatic: Denies easy bruising Allergic/Immunologic Allergic/Immunologic: Denies urticaria, Denies throat swelling and Denies wheezing Patient History Medical History Coronary artery disease (Acute) Hypertension (Acute) Social History household members: spouse Smoking Status: Never smoker Smoking Status: Never smoker alcohol intake frequency: 0-2 drinks per day Substance Use Type: does not use Exam Narrative Exam Narrative: GENERAL: [73] year old patient appears stated age. Well- nourished, well-developed patient, in mild distress. HEAD: Atraumatic. Normocephalic. EYES: Pupils equal round and reactive. Extraocular motions intact. No scleral icterus. No injection or drainage. ENT: Nose without bleeding, purulent drainage. Throat without erythema, tonsillar hypertrophy or exudate. Airway patent. NECK: Trachea midline. Non tender CARDIOVASCULAR: Regular rate and rhythm without murmurs, gallops, or rubs. RESPIRATORY: Clear to auscultation. Breath sounds equal bilaterally. No wheezes, rales, or rhonchi. GASTROINTESTINAL: Abdomen soft, non-tender, nondistended. EXTREMITIES: No edema or joint tenderness. BACK: Nontender without deformity or crepitance. No flank tenderness. NEURO: AOx3. SKIN: No rash or erythema of visible areas Initial Vital Signs Initial Vital Signs: Vital Signs Temperature 98.1 F 04/28/19 18:10 Pulse Rate 62 04/28/19 18:10 Respiratory Rate 18 04/28/19 18:10 Blood Pressure 127/75 04/28/19 18:10 Pulse Oximetry 96 04/28/19 18:10 Course Orders Ordered: ED Orders 04/28/19 18:21 XR chest 1V Stat EKG-12 Lead Stat 04/28/19 18:22 Complete Blood Count AUTO DIFF Stat Comprehensive Metabolic Panel Stat Lipase Stat Magnesium Stat Partial Thromboplastin Time Stat Prothrombin Time INR Stat Troponin & CK Cardiac Panel Stat 04/28/19 19:32 EKG-12 Lead Stat 04/28/19 21:30 Ictotest Urine Stat Urinalysis and Microscopic Stat Urine Culture Stat 04/29/19 02:15 PTT [Partial Thromboplastin Time] Q6H 04/29/19 05:00 Hemoglobin and Hematocrit DAILY 04/29/19 08:15 PTT [Partial Thromboplastin Time] Q6H 04/29/19 14:15 PTT [Partial Thromboplastin Time] Q6H Heparin Sodium/Dextrose (Heparin Drip) 25,000 unit in 500 mls @ 20 mls/hr IV CO NT CHAN; Protocol Last Admin: 04/28/19 20:23 Dose: 1,000 units/hr, 20 mls/hr Documented by: HFARRINGTO Discontinued Medications Aspirin (Aspirin Chew) 324 mg PO NOW ONE Stop: 04/28/19 18:26 Last Admin: 04/28/19 18:51 Dose: 243 mg Documented by: ARRINGTO Heparin Sodium (Porcine) (Heparin) 5,000 unit IV NOW ONE Stop: 04/28/19 20:06 Last Admin: 04/28/19 20:15 Dose: 5,000 unit Documented by: MORISARRINGTO Nitroglycerin (Nitrostat) 0.4 mg SL [id number] PRN PRN Reason: Chest Pain Last Admin: 04/28/19 20:03 Dose: 0.4 mg Documented by: MORISARRINGTO Admin: 04/28/19 19:56 Dose: 0.4 mg Documented by: Admin: 04/28/19 19:49 Dose: 0.4 mg Documented by: ARRINGRISA Reevaluation(s) Reevaluation #1: pain free after NG Consultations Consultation #1: call to cardio at [facility]. Recommend transfer, heparin, admit to hospitalist. Consultation #2: Hospitalist happy to accept at [facility] Vital Signs Vital signs: Vital Signs - 8 hr 04/28/19 18:10 04/28/19 19:15 04/28/19 19:49 Temperature 98.1 F Pulse Rate 62 60 60 Respiratory Rate 18 23 Blood Pressure 127/75 116/68 Blood Pressure [Right Arm] 109/68 Pulse Oximetry 96 96 04/28/19 19:55 04/28/19 19:56 04/28/19 20:00 Temperature Pulse Rate 65 68 70 Respiratory Rate 21 19 Blood Pressure 114/75 Blood Pressure [Right Arm] 114/75 103/72 Pulse Oximetry 95 93 04/28/19 20:03 04/28/19 21:00 04/28/19 21:33 Temperature Pulse Rate 63 57 L 56 L Respiratory Rate 20 23 Blood Pressure 103/72 Blood Pressure [Right Arm] 99/59 L 115/63 Pulse Oximetry 97 96 MDM - Chest Pain Lab Data Result diagrams: 04/28/19 18:22 04/28/19 18:22 Labs: Lab Results 04/28/19 04/28/19 04/28/19 Range/Units 18:22 18:22 18:22 WBC 7.5 (4.5-11.0) X10^3/uL RBC 4.20 L (4.5-5.9) X10^6/uL Hgb 13.0 L (13.5-17.5) g/dL Hct 37.9 L (41-53) % MCV 90.4 (80-100) fL MCH 31.1 (26-34) PG MCHC 34.4 (30-36) % RDW 13.4 (11.6-14.8) % Plt Count 182 (150-400) X10^3/uL Neut % (Auto) 66.6 (50-75) % Lymph % (Auto) 21.9 L (25-40) % [place] % (Auto) 7.0 (3-14) % Eos % (Auto) 3.7 (2-4) % Baso % (Auto) 0.8 (0-2) % Neut # (Auto) 5000 (2462-8695) /uL Lymph # (Auto) 1600 (7701-7420) /uL [place] # (Auto) 500 (0-900) /uL Eos # (Auto) 300 (0-450) /uL Baso # (Auto) 100 (0-100) /uL PT 11.5 (10.1-12.7) SECONDS INR 1.0 (0.9-1.3) APTT 28 (26.4-36.2) SECONDS Sodium 140 (137-145) mmol/L Potassium 4.1 (3.4-5.1) mmol/L Chloride 105 (98-107) mmol/L Carbon Dioxide 24 (22-32) mmol/L BUN 22 H (9-20) mg/dL Creatinine 0.90 (0.66-1.25) mg/dL Estimated GFR > 60.0 (>60) mL/min BUN/Creatinine Ratio 24.4 H (6-22) Glucose 124 H (80-110) mg/dL Calcium 9.1 (8.4-10.2) mg/dL Magnesium 1.8 (1.6-2.3) mg/dL Total Bilirubin 0.3 (0.2-1.3) mg/dL AST 29 (17-59) IU/L ALT 20 (<50) IU/L Alkaline Phosphatase 92 (38-126) U/L Total Creatine Kinase 224 H (55-170) U/L CK-MB (CK-2) 2.52 H (<2.37) ng/mL CK-MB (CK-2) Rel Index 1.1 L (1.5-5.0) % Troponin I < 0.012 (0.01-0.034) ng/mL Total Protein 6.9 (6.3-8.2) g/dL Albumin 4.0 (3.5-5.0) g/dL Globulin 2.9 (1.7-4.1) g/dL Albumin/Globulin Ratio 1.4 (1.0-2.8) Lipase 77 (23-300) U/L Urine Color Urine Appearance Urine pH (4.5-8.0) Ur Specific [place] (1.000-1.035) Urine Protein (Negative) Urine Glucose (UA) (Negative) g/dL Urine Ketones (NEGATIVE) Urine Occult Blood (Negative) Urine Nitrate (Negative) Urine Bilirubin (NEGATIVE) Urine Ictotest (Negative) Urine Urobilinogen (0.2) E.U./dL Ur Leukocyte Esterase (NEGATIVE) Urine RBC (0-5/HPF) Urine WBC (0-5/HPF) Ur Squamous Epith Cells (0-5/HPF) Urine Bacteria (None) Ur Culture Indicated? 04/28/19 04/28/19 Range/Units 20:30 21:30 WBC (4.5-11.0) X10^3/uL RBC (4.5-5.9) X10^6/uL Hgb (13.5-17.5) g/dL Hct (41-53) % MCV (80-100) fL MCH (26-34) PG MCHC (30-36) % RDW (11.6-14.8) % Plt Count (150-400) X10^3/uL Neut % (Auto) (50-75) % Lymph % (Auto) (25-40) % [place] % (Auto) (3-14) % Eos % (Auto) (2-4) % Baso % (Auto) (0-2) % Neut # (Auto) (9570-5770) /uL Lymph # (Auto) (9395-7337) /uL [place] # (Auto) (0-900) /uL Eos # (Auto) (0-450) /uL Baso # (Auto) (0-100) /uL PT (10.1-12.7) SECONDS INR (0.9-1.3) APTT Cancelled (26.4-36.2) SECONDS Sodium (137-145) mmol/L Potassium (3.4-5.1) mmol/L Chloride (98-107) mmol/L Carbon Dioxide (22-32) mmol/L BUN (9-20) mg/dL Creatinine (0.66-1.25) mg/dL Estimated GFR (>60) mL/min BUN/Creatinine Ratio (6-22) Glucose (80-110) mg/dL Calcium (8.4-10.2) mg/dL Magnesium (1.6-2.3) mg/dL Total Bilirubin (0.2-1.3) mg/dL AST (17-59) IU/L ALT (<50) IU/L Alkaline Phosphatase (38-126) U/L Total Creatine Kinase (55-170) U/L CK-MB (CK-2) (<2.37) ng/mL CK-MB (CK-2) Rel Index (1.5-5.0) % Troponin I (0.01-0.034) ng/mL Total Protein (6.3-8.2) g/dL Albumin (3.5-5.0) g/dL Globulin (1.7-4.1) g/dL Albumin/Globulin Ratio (1.0-2.8) Lipase (23-300) U/L Urine Color Brown Urine Appearance Cloudy Urine pH 6.5 (4.5-8.0) Ur Specific [place] 1.020 (1.000-1.035) Urine Protein 3+ H (Negative) Urine Glucose (UA) Negative (Negative) g/dL Urine Ketones Trace H (NEGATIVE) Urine Occult Blood 3+ H (Negative) Urine Nitrate Positive (Negative) Urine Bilirubin 1+ H (NEGATIVE) Urine Ictotest Negative (Negative) Urine Urobilinogen 1.0 (0.2) E.U./dL Ur Leukocyte Esterase 2+ H (NEGATIVE) Urine RBC >100/hpf (0-5/HPF) Urine WBC 10-30/hpf H (0-5/HPF) Ur Squamous Epith Cells 0-1 /hpf (0-5/HPF) Urine Bacteria None seen (None) Ur Culture Indicated? Specimen cultured Imaging Data Chest x-ray: Radiologist's Impression: [place] [id number] XRay Report Signed Patient: Brett Fragoso TMR#: [id number] : 5Acct:[id number] Age/Sex: 73 / MDate of Service: 04/28/19 Loc: ED Accession Number: [id number] Procedure: XR chest 1V Ordering Provider: Ramakrishna Martinez D.O. PROCEDURE: XR CHEST 1V INDICATIONS: chest pain TECHNIQUE: One view of the chest was acquired. COMPARISON: [facility], CT, CT ANGIO CHEST, 03/09/2019, 8:02. [facility], CR, CHEST 1 VIEW, 03/10/2017, 9:27. [facility], CR, XR CHEST 1V, 03/08/2019, 18:52. FINDINGS: Surgical changes and devices: None. Lungs and pleura: Lungs are clear. No pleural effusions or pneumothorax. Mediastinum: Mediastinal contours appear normal. Heart size is normal. Bones and chest wall: No suspicious bony lesions. Overlying soft tissues appear unremarkable. IMPRESSION: No acute cardiopulmonary disease. Dictated by: Klaudia Mayen M.D. on 04/28/2019 at 19:36 Approved by: Klaudia Mayen M.D. on 04/28/2019 at 19:38 ECG Data Interpretation: EKG is slightly bradycardic sinus rhythm rate [ 55] and free of any signs of ischemia or ectopy. No ST segmental elevation or depression. No T wave inversions EKG 2. Unchanged Critical Care Time Critical Care Time Critical Care Time: Yes Total Critical Care Time: 30 Attestation: The high probability of a clinically significant, sudden or life threatening deterioration of the [CV] system(s) required my full and direct attention, intervention and personal management. The aggregate critical care time was [30] minutes. This time is in addition to time spent performing reported procedures but includes the following: [x] Data Review and interpretation [x] Patient assessment and monitoring of vital signs [x] Documentation [x] Medication orders and management Discharge Plan Departure Patient Disposition: [facility] Clinical Impression: Chest pain Prescriptions: No Action aspirin [Adult Low Dose Aspirin] 81 mg tablet,delayed release (DR/EC) 81 mg PO BEDTIME RF: 0 nitroglycerin [Nitrostat] 0.4 mg Tablet, Sublingual 0.4 mg sublingual [id number] PRN (Reason: Chest Pain) Qty: 15 RF: 6 isosorbide mononitrate 30 mg tablet extended release 24 hr 30 mg PO BID RF: 0 clopidogrel 75 mg tablet 75 mg PO BEDTIME RF: 0 metoprolol tartrate 50 mg tablet 50 mg PO BID RF: 0 rosuvastatin 40 mg tablet 40 mg PO BEDTIME RF: 0 Daily Multivitamin 200-100-500 mcg Capsule 1 cap PO BEDTIME RF: 0 losartan 50 mg tablet 50 mg PO BEDTIME RF: 0
[2019-04-28 18:27] LABS: Add Manual Diff / Slide Review NO; Basophils Absolute Auto 100 /uL (0-100); Basophils Percent Auto 0.8 % (0-2); Eosinophils Absolute Auto 300 /uL (0-450); Eosinophils Percent Auto 3.7 % (2-4); Hematocrit 37.9 % (41-53); Lymphocytes Absolute Auto 1600 /uL (1100-4500); Lymphocytes Percent Auto 21.9 % (25-40); Mean Corpuscular HGB Conc 34.4 % (30-36); Mean Corpuscular Hemoglobin 31.1 PG (26-34); Mean Corpuscular Volume 90.4 fL (80-100); Monocytes Absolute Auto 500 /uL (0-900); Neutrophils Absolute Auto 5000 /uL (1500-7000); Neutrophils Percent Auto 66.6 % (50-75); Platelet Count 182 X10^3/uL (150-400); Red Cell Distribution Width 13.4 % (11.6-14.8); White Blood Cell Count 7.5 X10^3/uL (4.5-11.0)
[2019-04-28 18:36] LABS: Prothrombin Time 11.5 SECONDS (10.1-12.7)
[2019-04-28 18:39] LABS: PTT Partial Thromboplastin Tim 28 SECONDS (26.4-36.2)
[2019-04-28 18:41] LABS: Alanine Aminotransferase 20 IU/L (<50); Albumin Globulin Ratio 1.4 (1.0-2.8); Alkaline Phosphatase 92 U/L (38-126); Aspartate Aminotransferase 29 IU/L (17-59); BUN Creatinine Ratio 24.4 (6-22); Bilirubin Total 0.3 mg/dL (0.2-1.3); Blood Urea Nitrogen 22 mg/dL (9-20); Calcium 9.1 mg/dL (8.4-10.2); Carbon Dioxide 24 mmol/L (22-32); Chloride 105 mmol/L (98-107); Creatine Kinase 224 U/L (55-170); Estimated Glomerular Filt Rate > 60.0 mL/min (>60); Globulin 2.9 g/dL (1.7-4.1); Glucose 124 mg/dL (80-110); HEMOLYSIS < 15 (0-50); Lipase 77 U/L (23-300); Magnesium 1.8 mg/dL (1.6-2.3); Potassium 4.1 mmol/L (3.4-5.1); Sodium 140 mmol/L (137-145); Total Protein 6.9 g/dL (6.3-8.2)
[2019-04-28] MEDS: ASPIRIN 81 MG CHEW TAB 324 MG PO (18:51)
[2019-04-28 18:52] LABS: Troponin I < 0.012 ng/mL (0.01-0.034)
--- NOTE | 2019-04-28 18:54 | PC.NURSE ---
per dr paz, I gave 3 of 4 aspirin chew to patient secondary to patient having taken 1 baby aspirin at home at approx 1800,
[2019-04-28 18:56] LABS: CKMB % Relative Index 1.1 % (1.5-5.0); Creatine Kinase MB 2.52 ng/mL (<2.37)
[2019-04-28] MEDS: NITROGLYCERIN 0.4 MG SL TAB SL ×3 (19:49→20:03)
[2019-04-28] MEDS: HEPARIN 5,000 UNIT/ML VIAL 5000 UNIT IV (20:15)
[2019-04-28] MEDS: HEPARIN DRIP 25,000 UNIT/500 ML IV.SOLN 20 UNIT IV (20:23)
--- NOTE | 2019-04-28 20:34 | PC.NURSE ---
second PIV placed by JORDAN Mercer
--- NOTE | 2019-04-28 21:22 | PC.NURSE ---
Report called to Gena Berry RN at [facility], phone number [phone]. She verbalized understanding and stated she had no further questions. I informed her that JORDAN Rodarte would be continuing care with Mr Fragoso until [facility] arrived for transport.
[2019-04-28 21:35] LABS: Bacteria Urine None Seen
[2019-04-28 21:36] LABS: Bilirubin Urine UA 1+ (NEGATIVE); Glucose Urine UA NEGATIVE (Negative); Ketones Urine UA TRACE (NEGATIVE); Leukocyte Esterase Urine UA 2+ (NEGATIVE); Nitrite Urine UA POSITIVE (Negative); Occult Blood Urine UA 3+ (Negative); Protein Urine UA 3+ (Negative); pH Urine UA 6.5 (4.5-8.0)
[2019-04-28 21:52] LABS: Appearance Urine UA Cloudy; Color Urine UA BROWN; Ictotest Urine Negative (Negative); RBC Urine >100/HPF (0-5/HPF); Squamous Epithelial Cell Urine 0-1 /HPF (0-5/HPF); WBC Urine 10-30/HPF (0-5/HPF)
[2019-04-28 21:53] LABS: Culture Indicated Urine Specimen Cultured
== END 2019-04-28 22:20 | disposition short-term general hospital (02) ==
PROVIDERS: Emergency Provider Emergency Medicine; Family Provider Student in an Organized Health Care Education/Training Program
DX: R07.9 Chest pain, unspecified (principal); R00.1 Bradycardia, unspecified
CPT/HCPCS: 36415; 71045; 80053; 81001; 82550; 82553; 83690; 83735; 84484; 85025; 85610; 85730; 87086; 93005; 96365; 96375; 99284; 99291; J1644

== ENCOUNTER → 2019-05-04 10:52 | Outpatient (ROUT) | payer MEDICARE, SELFPAY ==
[2019-05-04 11:24] LABS: D Dimer 273 ng/mL (<230)
== END ==
PROVIDERS: Family Provider Student in an Organized Health Care Education/Training Program; Visit Provider Student in an Organized Health Care Education/Training Program
DX: R06.00 Dyspnea, unspecified (principal)
CPT/HCPCS: 85379

== ENCOUNTER → 2019-05-08 15:03 | Outpatient (CLI) | payer MEDICARE, SELFPAY ==
--- NOTE | 2019-05-08 | DI.CT.S_ITS ---
PROCEDURE: CT ANGIO CHEST PE PROTOCOL INDICATIONS: dyspnea TECHNIQUE: After the administration of intravenous contrast, 2 mm thick sections acquired from the pulmonary apices to the posterior costophrenic angles. 3-dimensional maximum intensity projection (MIP) coronal and sagittal reformats were then acquired through the thorax. For radiation dose reduction, the following was used: automated exposure control, adjustment of mA and/or kV according to patient size. COMPARISON: [facility], CT, CT ANGIO CHEST, 03/09/2019, 8:02. FINDINGS: Image quality: Excellent. Pulmonary arteries: Pulmonary arteries are normal in size, and demonstrate no intraluminal filling defects to suggest central pulmonary embolism. Lungs and pleura: Lungs are clear. No pleural effusions or pneumothorax. Central and peripheral airways are patent. Mediastinum: Heart size is enlarged. There is a new small pericardial effusion. There is calcification of the coronary vasculature No mediastinal or hilar adenopathy. Thoracic aorta is normal in caliber and enhancement. Esophagus is normal in caliber, without hiatal hernia. Bones and chest wall: No suspicious bony lesions. Ribs and thoracic spine appear intact throughout. Thyroid gland is within normal limits. No axillary or supraclavicular adenopathy. Abdomen: Visualized portions of the upper abdomen demonstrate an incompletely visualized ureteral stent. IMPRESSION: 1. No pulmonary embolus. 2. Small pericardial effusion. 3. Cardiomegaly. Coronary artery disease. Dictated by: Eli Jolley M.D. on 05/08/2019 at 15:50 Approved by: Eli Jolley M.D. on 05/08/2019 at 15:54
== END ==
PROVIDERS: Visit Provider Student in an Organized Health Care Education/Training Program
DX: R06.00 Dyspnea, unspecified (principal); I31.3 Pericardial effusion (noninflammatory); I51.7 Cardiomegaly; I25.10 Atherosclerotic heart disease of native coronary artery without angina pectoris
CPT/HCPCS: 71275

== ENCOUNTER 2019-07-13 11:30 | Outpatient (RCR) | payer MEDICARE, SELFPAY | END 2020-01-11 07:30 | LOC: CAR 11:30 | PROVIDERS: Visit Provider Hospitalist | DX: Z95.5 Presence of coronary angioplasty implant and graft (principal) | CPT/HCPCS: 93798 ==

== ENCOUNTER → 2019-08-14 13:11 | Outpatient (CLI) | payer MEDICARE, SELFPAY ==
[2019-08-15 19:46] LABS: COVID19 Sendout Not Detected (Not Detect)
== END ==
PROVIDERS: Visit Provider Registered Nurse
DX: Z01.812 Encounter for preprocedural laboratory examination (principal)
CPT/HCPCS: 87635

== ENCOUNTER 2019-08-18 08:05 | Day surgery (SDC) | payer MEDICARE, SELFPAY ==
[2019-08-18] VITALS (7 sets, daily range): BP systolic 108–118; BP diastolic 60–71; PULSE 51–62; RESP 12–22; TEMP 36.2–36.7; O2SAT 92–97; BMI 28.9
--- NOTE | 2019-08-18 08:45 | DI.RAD.S_ITS ---
PROCEDURE: XR KUB INDICATIONS: prior to surgical procedure TECHNIQUE: One view of the abdomen acquired. COMPARISON: [facility], CR, XR KUB, 04/05/2019, 16:35. FINDINGS: Surgical changes and devices: Surgical clips right upper quadrant suggest prior cholecystectomy. Double-pigtail right ureteral stent in place. Inferior pigtail is not fully coiled. Bowel: Bowel gas pattern is normal. Soft tissues: No suspicious abdominal calcifications. Visualized solid organ contours appear normal in size. Bones: No suspicious bony lesions. Prior spine surgery lumbosacral junction. IMPRESSION: No urinary tract stone found. Double-pigtail right ureteral catheter are unchanged in appearance from 04/05/19. Prior spine surgery at the lumbosacral junction, stable over time also. No contraindication to surgical intervention is found. Dictated by: Delroy Foy M.D. on 08/18/2019 at 8:47 Approved by: Delroy Foy M.D. on 08/18/2019 at 8:48
--- NOTE | 2019-08-18 08:52 | PM.PREOP ---
Pre-operative Note Interval Note History & Physical reviewed/Exam performed by Physician: Yes Changes to H&P: No H&P completed within 30 days and has changed as indicated here:: There are no changes to the history and physical examinations scanned on file.
[2019-08-18] MEDS: LACTATED RINGERS 1,000 ML 42 ML IV ×2 (09:19→11:35)
[2019-08-18] MEDS: CEFAZOLIN 2 GM/100 ML FROZ.PIGGY IV (10:00)
--- NOTE | 2019-08-18 10:30 | SUR.OPER ---
SUPINE ON ESWL TABLE PER SURGEON AND [employer] GENERAL ENGINEER. HEAD ON ONE PILLOW, BILATERAL ARMS RESTING AT SIDES SECURED WITH GEL PADS AND BLANKET. THEN REPOSITIONED TO LITHOTOMY FOR STENT REMOVAL ON ESWL TABLE AND PADDED STIRRUPS PER SURGEON.
--- NOTE | 2019-08-18 11:37 | PM.OP.1 ---
Operative Date/Time/Diagnoses Date of procedure: 08/18/19 Time of procedure: 11:37 Pre-op diagnosis: 1. 6 m right renal calculus. 2. History of obstructing right proximal ureteral calculus. 3. Retained right ureteral stent. Post-op diagnosis: same Procedure & Clinicians Procedure: 1. Right extracorporeal shockwave lithotripsy (maximal power level 8.0 x 2000 shocks). 2. Cystoscopy and right ureteral stent removal. Same procedure as scheduled: Yes Indications: 1. 6 mm right renal calculus. 2. Retained right ureteral stent. Surgeon: Palmer Kern Click Yes if Unassisted: Yes Anesthesia Type: General Operative Notes Findings: Urethra-normal. External sphincter-coapted. Prostate-3.5-4 cm length with moderate lateral lobe hyperplasia. Bladder-1 to 2+ trabeculation normal orifices bilaterally. There was no visualized distal and of a right ureteral stent as expected. The right ureteral vesicle junction required guidewire placement and dilation with a 15 [place] by 6 cm balloon dilating catheter. The distal end of the stent was then visualized within 1 cm of the right ureteral orifice. A rat-tooth foreign body grasper was utilized under direct endoscopy to engage the distal end of the stent within the distal ureter and extracted without incident subsequently. Closure Type: not applicable Specimen(s): none sent Estimated Blood Loss (mL): 0 Blood products transfused: none Tourniquet time (min): 0 Procedure in detail: The patient was positioned supine and administered general anesthesia. The above-described stone was localized in the XYZ plane. Lithotripsy was then commenced at minimal power level for total of 200 shocks. A 2 minutes pause was then conducted. Lithotripsy was then resumed and the power level was gradually increased to a maximal power level of 8.0. A total of 2000 shocks were delivered to the stone with excellent radiographic evidence of stone fragmentation. Next the patient was repositioned in semi lithotomy in the lower abdomen genitalia and groin were prepped and draped in sterile fashion the 22 Sammarinese panendoscope was then passed into the lower urinary tract with the findings as described above. Due to lack of visualization of the distal end of the stent, line within the intramural ureter, a 0.35 guidewire was advanced into the right collecting system. A 15 [place] by 6 cm balloon dilating catheter was then advanced over the guidewire across the right ureteral vesicle junction. The balloon was inflated to 18 atmospheres for 5 minutes before deflation and backloaded off the wire. The panendoscope was then utilized to visualize the inner portion of the distal right ureter and indeed the distal portion of the right ureteral stent could be visualized. A rat-tooth foreign body grasper was then advanced through the panendoscope the stent was engaged and removed without incident. The patient was then repositioned supine, was awakened, and transported to recovery in stable condition. Complications: none Post-operative Disposition: PACU Plan for aftercare: Discharge home
--- NOTE | 2019-08-18 12:51 | SUR.PHASEII ---
Report from Brionna pt denied pain or discomfort, taking juice well.
--- NOTE | 2019-08-18 13:30 | SUR.PHASEII ---
Pt up to [facility], voided, bloody urine, no stones, sent home with clean filter, urinal and container, pt aware to strain urine at home. Pt left unit when ready, and in stable condition. D/C instructions discussed with and pt at car, both voiced an understanding.
== END 2019-08-18 13:20 | disposition home or self-care (01) ==
PROVIDERS: PCP Student in an Organized Health Care Education/Training Program; Referring Provider Specialist; Visit Provider Specialist
PROC: (CPT 50590; principal; 2019-08-18 09:15)
PROC: (CPT 50590; 2019-08-18 09:15)
DX: N20.0 Calculus of kidney (principal); N40.0 Benign prostatic hyperplasia without lower urinary tract symptoms; Z79.01 Long term (current) use of anticoagulants
CPT/HCPCS: 50590; 52310; 74018; J0690; J1100; J1885; J2250; J2405; J2704; J3010